=== PATIENT | female | born 1995 | race Caucasian/White ===

== ENCOUNTER 2022-07-29 22:34 | Emergency (ER) | payer OTHER, SELFPAY ==
[2022-07-29 22:39] VITALS: PULSE 82; RESP 18; TEMP 36.6; O2SAT 100
--- NOTE | 2022-07-29 23:06 | PC.NURSE ---
Small puncture wound noted to left thumb. Bleeding controlled at this time.
--- NOTE | 2022-07-29 23:28 | ED.GENADULT ---
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 She was giving the patient a medication IM and when she took the needle out she accidentally stuck herself in the left thumb. She notes that there was bleeding at the time of the puncture. She then thoroughly washed the site. Denies any further injury. Related Data Allergies Allergy/AdvReac Type Severity Reaction Status Date / Time shrimp Allergy Swelling Verified 07/29/22 22:42 of Lip/Tongue/Throat walnut Allergy Swelling Verified 07/29/22 22:42 of Lip/Tongue/Throat Review of Systems Review of Systems: CONSTITUTIONAL: Denies fever, chills, or sweats. SKIN: See HPI MUSCULOSKELETAL: Denies back pain, joint pain, or myalgia. NEUROLOGIC: Denies headache, numbness, dizziness, or weakness. PSYCHIATRIC: Denies anxiety or depression. Exam Narrative: GENERAL: Well-appearing, well-nourished, and in no acute distress. MSK: Left hand with normal range of motion. No tenderness. No edema. SKIN: No lesions. No bleeding. Warm, dry, no rash. NEURO: Alert and oriented x3. No focal deficits. PSYCH: Normal mood and affect. 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 Vitals are stable. Exam benign. Needlestick injury labs were drawn on the source and this patient. Is a send out lab so we are pending that at this time. She will be notified if anything comes back positive and she needs postexposure prophylaxis. As of right now the source has no documented history of any hepatitis or HIV. Stable for discharge. Vital Signs Vital Signs: Vital Signs Temperature 98 F 07/29/22 22:39 Pulse Rate 82 07/29/22 22:39 Respiratory Rate 18 07/29/22 22:39 Pulse Oximetry 100 07/29/22 22:39 Oxygen Delivery Room Air 07/29/22 22:39 Temperature 98 F 07/29/22 22:39 Pulse Rate 70 07/29/22 23:46 Respiratory Rate 18 07/29/22 23:46 Blood Pressure 130/77 07/29/22 23:46 Pulse Oximetry 99 07/29/22 23:46 Oxygen Delivery Room Air 07/29/22 22:39 Lab Data Labs: Lab Results 07/29/22 Range/Units 23:04 Hep Bs Antibody Pending Hepatitis C Ab Screen Negative (Negative) HIV 1&2 Ab/P24 Ag 4thGn Negative (Negative) Discharge Plan Discharge Clinical Impression: Needlestick injury accident Patient Disposition: Home, Self-Care Condition: Stable Instructions: Antibiotic Form Follow-up/Referrals: Jose,SARAH Hager [Primary Care Provider] - Time of Disposition: 23:37
[2022-07-29 23:46] VITALS: BP 130/77; PULSE 70; RESP 18; O2SAT 99
[2022-07-30 01:06] LABS: Hepatitis B Surface Antibody > 1000.00 s/c
[2022-07-30 01:10] LABS: HIV 1/2 Ab P24 Ag Result Negative (Negative); Hepatitis C Virus Antibody Negative (Negative)
[2022-07-30 04:53] LABS: Hepatitis B Surface Anti Res Positive
[2022-07-30 09:01] LABS: Alanine Aminotransferase 30 U/L (6-35); Alkaline Phosphatase 52 U/L (38-126); Aspartate Amino Transferase 24 U/L (14-36); Bilirubin,Total 0.1 mg/dL (0.2-1.3)
== END 2022-07-29 23:47 | disposition home or self-care (01) ==
PROVIDERS: Emergency Medicine; Emergency Provider Physician Assistant; PCP Family Medicine
DX: S61.031A Puncture wound without foreign body of right thumb without damage to nail, initial encounter (principal); W46.1XXA Contact with contaminated hypodermic needle, initial encounter; Z77.21 Contact with and (suspected) exposure to potentially hazardous body fluids; Z20.6 Contact with and (suspected) exposure to human immunodeficiency virus [HIV]
CPT/HCPCS: 36415; 80076; 86703; 86706; 86803; 99283; G0432

== ENCOUNTER 2022-11-07 13:57 | Outpatient (CLI) | payer OTHER, SELFPAY ==
[2022-11-07 15:53] LABS: Iron 32 ug/dL (37-170)
[2022-11-07 16:05] LABS: Percent Iron Saturation 7 % (20-50)
[2022-11-07 16:31] LABS: Ferritin 6.93 ng/mL (6.24-137)
[2022-11-07 16:33] LABS: Folic Acid 9.2 ng/mL (2.76->20)
== END 2022-11-07 13:58 | disposition home or self-care (01) ==
PROVIDERS: PCP Family Medicine; Visit Provider Nurse Practitioner Family
DX: R53.83 Other fatigue (principal)
CPT/HCPCS: 36415; 82607; 82728; 82746; 83540; 83550